=== PATIENT | female | born 1995 | race Two or more races ===

== ENCOUNTER 2020-02-12 17:53 | Emergency (ER) | payer OTHER ==
[~2020-02-12] VITALS: Ht 170.2 cm; Wt 74.8 kg
[2020-02-12 18:02] VITALS: BP 130/90
--- NOTE | 2020-02-12 20:13 | NUR ---
COVID TESTING DONE & SENT TO LAB.
== END 2020-02-12 20:14 | disposition home or self-care (01) ==
LOC: ER 17:59
DX: R50.9 Fever, unspecified (principal); R11.2 Nausea with vomiting, unspecified; Z20.828 Contact with and (suspected) exposure to other viral communicable diseases; R63.0 Anorexia; R00.0 Tachycardia, unspecified; R03.0 Elevated blood-pressure reading, without diagnosis of hypertension
CPT/HCPCS: 99283; C9803; U0003